=== PATIENT | male | born 1985 | race American Indian/Alaskan Native ===

== ENCOUNTER 2017-07-28 09:08 | Emergency (ER) | payer OTHER ==
[2017-07-28 09:15] VITALS: BP 117/78
[2017-07-28 10:07] LABS: Bilirubin,Urine NEG (Negative); Blood,Urine NEG (Negative); Color,Urine Yellow (Yellow); Mucus,Urine FEW /HPF; Protein,Urine <15 mg/dL mg/dL (Negative); Urobilinogen,Urine < 2.0 mg/dL (<2.0)
--- NOTE | 2017-07-28 10:11 | Emergency Department Report ---
ED Male HPI - General Chief complaint: Urogenital-Male Stated complaint: PAIN IN GROIN AREA Time Seen by Provider: 07/28/17 09:42 Source: patient Mode of arrival: Ambulatory Limitations: No Limitations - History of Present Illness Initial comments: This is a 31 y.o. male that presents with swollen lymph nodes bilateral groin, and bumps on penile shaft for 2 days. 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 Reports discomfort while sitting or laying down. States itching to groin area w/o pain. Admits to possible exposure to STD. Denies heavy lifting, discharge, low back pain, abdominal pain, dysuria, difficulty voiding, testicular pain or swelling, frequency, or urgency. MD Complaint: other (bumps on penile shaft) -: days(s) (2) Location: penis, right inguinal region (swollen lymph nodes), left inguinal region (swollen lymph node) Radiation: none Severity: moderate Severity scale (0 -10): 7 Quality: aching Consistency: constant Improves with: none Worsens with: movement, other (sitting) other (itching at groin area). denies: discharge, swelling, mass, rash, urinary retention, blood in urine, dysuria, fever, nausea/vomiting, incontinence - Related Data Sexually active: Yes Previous Rx's Medication Instructions Recorded Last Taken Type RX: Doxycycline Monohydrate 100 mg PO BID 5 Days #10 tablet 07/28/17 Unknown Rx RX: Valacyclovir HCl [Valtrex] 1,000 mg PO BID 10 Days #20 tablet 07/28/17 Unknown Rx Allergies Allergy/AdvReac Type Severity Reaction Status Date / Time No Known Allergies Allergy Unverified 07/28/17 09:09 ED Review of Systems ROS: Stated complaint: PAIN IN GROIN AREA Other details as noted in HPI Constitutional: denies: chills, fever Respiratory: denies: cough, shortness of breath, wheezing Cardiovascular: denies: chest pain, palpitations Gastrointestinal: denies: abdominal pain, nausea, diarrhea Genitourinary: other (bumps on penile shaft). denies: urgency, dysuria, frequency, hematuria, discharge, testicular pain, testicular mass Skin: pruritus (bilateral groin area). denies: rash, lesions Neurological: denies: headache, weakness, paresthesias ED Past Medical Hx - Past Medical History Previous Medical History?: No - Surgical History Past Surgical History?: Yes Additional Surgical History: jaw surgery - Social History Smoking Status: Never Smoker Substance Use Type: Marijuana - Medications Home Medications: Home Medications Medication Instructions Recorded Confirmed Last Taken Type RX: Doxycycline Monohydrate 100 mg PO BID 5 Days #10 tablet 07/28/17 Unknown Rx RX: Valacyclovir HCl [Valtrex] 1,000 mg PO BID 10 Days #20 tablet 07/28/17 Unknown Rx ED Physical Exam - General Limitations: No Limitations General appearance: alert, in no apparent distress - Respiratory Respiratory exam: Present: normal lung sounds bilaterally. Absent: respiratory distress - Cardiovascular Cardiovascular Exam: Present: regular rate, normal rhythm, normal heart sounds. Absent: systolic murmur, diastolic murmur, rubs, gallop - GI/Abdominal GI/Abdominal exam: Present: soft, normal bowel sounds - exam: Present: circumcision. Absent: testicular tenderness, urethral discharge, scrotal swelling, vertical testicular lie External exam: Present: erythema, lesions (2-3 mm vesicular lesions on foreskin) . Absent: swelling - Back Exam Back exam: Present: normal inspection, full ROM. Absent: CVA tenderness (R), CVA tenderness (L), rash noted - Neurological Exam Neurological exam: Present: alert, oriented X3 - Skin Skin exam: Present: warm, dry, intact, normal color. Absent: rash ED Course Vital Signs 07/28/17 09:09 Temperature 97.7 F Pulse Rate 61 Respiratory 16 Rate Blood Pressure 117/78 O2 Sat by Pulse 98 Oximetry ED Medical Decision Making - Radiology Data Radiology results: report reviewed - Medical Decision Making This is a 31 y.o. male that presents with bumps to penile shaft and swollen inguinal lymph nodes for 2 days. Patient was examined by me. Obtained UA, GC, and CT of pelvis. UA normal. CT findings of swollen lymph on left and possible early cystitis. Physical assessment findings of swollen femoral lymph nodes and vesicular lesions to foreskin, susceptible of herpes simplex type 2. Discussed results with patient and agreed to be empirically treated for Herpes out patient. Discharged home in stable condition. Start valtrax 1000 mg po bid x 10 days, 2 refills and doxycycline 100 mg po bid x 5 days. Discussed prevention options. F/U with PCP or Health Department. Critical care attestation.: If time is entered above; I have spent that time in minutes in the direct care of this critically ill patient, excluding procedure time. 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 Continue safe sexual intercourse. Follow up with Primary Care Provider or health department. Prescriptions: RX: Doxycycline Monohydrate 100 mg PO BID 5 Days #10 tablet RX: Valacyclovir HCl [Valtrex] 1,000 mg PO BID 10 Days #20 tablet Referrals: [facility] [Outside] - 3-[address] [facility] [Outside] - 3-5 Days [facility] [Outside] - 3-5 Days Time of Disposition: 11:59 Print Language: INDONESIAN
--- NOTE | 2017-07-28 11:30 | Cat Scan Report ---
CT scan of pelvis without IV contrast: Next History: Rule out inguinal hernia bilateral. Findings: No definite evidence of inguinal hernia. There is lymph nodes identified in the left inguinal region. Each measures approximately 1.3 cm in diameter and is noted adjacent to each other. There is no definite lymph node noted in the right inguinal region. Thickwalled urinary bladder probably due to inadequate distention or cystitis. Fecal impaction in the rectum. No free intraperitoneal fluid. No bowel distention. Impression: 2 lymph nodes left inguinal region. No obvious lymph node at right inguinal region. No evidence of hernia. Thickwalled urinary bladder as detailed above.
[2017-07-28] MEDS ORDERED: ZITHROMAX PO ONE (11:56)
[2017-07-28] MEDS ORDERED: XYLOCAINE 1% MPF 5 mL INFILTRATI ONE (11:56)
[2017-07-28] MEDS ORDERED: ROCEPHIN IM ONE (11:56)
[2017-07-28] MEDS ORDERED: VALTREX PO ONE (13:00)
== END 2017-07-28 13:00 | disposition home or self-care (01) ==
LOC: ED 09:08
DX: A60.02 Herpesviral infection of other male genital organs (principal); F12.10 Cannabis abuse, uncomplicated; Z20.2 Contact with and (suspected) exposure to infections with a predominantly sexual mode of transmission
CPT/HCPCS: 72192; 81001; 87591; 96372; 99284; J0696